=== PATIENT | female | born 1945 | race Hispanic/Latino ===

== ENCOUNTER → 2019-08-28 | Outpatient (CLI) | payer MEDICARE ==
--- NOTE | 2019-08-28 12:30 | Diagnostic Imaging Report ---
EXAMINATION: LOWER LEG LEFT INDICATION: Left lower leg pain COMPARISON: None FINDINGS: AP and lateral images of the left lower leg (tibia and fibula) were obtained. No acute fracture or dislocation. Alignment appears anatomic. The ankle mortise appears intact and symmetric. The soft tissues appear unremarkable. No knee joint effusion. IMPRESSION: No acute osseous injury. Signed by: Krish Cisneros MD on 08/28/2019 12:27 PM
--- NOTE | 2019-08-28 12:33 | Diagnostic Imaging Report ---
EXAM: Focused Soft Tissue Ultrasound Evaluation of the left neck INDICATION: ^[id number] ^1122 ^ACUTE SIALOADENITIS COMPARISON: None TECHNIQUE: Arroyo scale, color Doppler images of the left neck were obtained. FINDINGS: Focused sonographic evaluation of the area of clinical concern in the left neck soft tissues demonstrates no focal mass or fluid collection. IMPRESSION: Unremarkable sonographic evaluation of the left neck soft tissues. Signed by: Krish Cisneros MD on 08/28/2019 12:30 PM
== END ==
LOC: US 10:54
PROVIDERS: ATTEND Family Medicine
DX: K11.21 Acute sialoadenitis (principal); M79.605 Pain in left leg
CPT/HCPCS: 76536

== ENCOUNTER → 2020-03-18 | Day surgery (SDC) | payer MEDICARE, OTHER ==
[2020-03-14 08:48] LABS: BASOPHILS # (AUTO) 0.1 (0.0-0.1); EOSINOPHILS # (AUTO) 0.3 (0.0-0.4); EOSINOPHILS % 4.6 % (0.0-6.0); HEMATOCRIT 43.6 % (34.2-44.1); HEMOGLOBIN 13.5 g/dL (12.0-16.0); LYMPHOCYTES # (AUTO) 1.6 (1.0-3.2); LYMPHOCYTES % 23.1 % (18.0-39.1); MEAN CORPUSCULAR HEMOGLOBIN 26.4 pg (28-32); MEAN CORPUSCULAR VOLUME 85.3 fL (81-99); MONOCYTES # (AUTO) 0.8 (0.2-0.8); MONOCYTES % 11.6 % (4.4-11.3); NEUTROPHILS # (AUTO) 4.1 (2.1-6.9); NEUTROPHILS % 59.1 % (38.7-80.0); PLATELET COUNT 153 x10e3/uL (140-360); RED BLOOD COUNT 5.11 x10e6/uL (3.6-5.1); RED CELL DISTRIBUTION WIDTH 15.3 % (11.7-14.4)
[~2020-03-18] MED LIST: ADVAIR 100-501 EACH; FAMOTIDINE20 MG PO; GLYCOPYRROLATE INJ 0.2 MG/ML VIAL ONE; LIDOCAINE HCL 2% LOCAL INJ 5 ML SDV VIAL INJ ONE; LOSARTAN POTASS25 MG PO; PROMETHAZINE HC25 M1 PO; PROPOFOL IV EMULSION 10 MG/ML 20 ML VIAL ONE; VALACYCLOVIR500 MG PO
--- OUTSIDE RECORDS SUMMARY | 2020-03-18 12:10 | XMS REPORT ---
Author Author [facility] Organization [facility] Address [address] 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 Allergies, Adverse Reactions, Alerts This patient has no known allergies or adverse reactions. Medications This patient has no known medications. Procedures This patient has no known procedures. Results Test Description Test Time Test Comments Results Result Comments Source US SOFT TISSUE NECK/HEAD 2019-08-28 12:29:00 [place] [id number] Patient Name: GEETA DE LOS SANTOS MR #: [id number] : 1945 Age/Sex: 73/F Req #: [id number] Adm Physician: Ordered by: TOMASA HOLDEN MD Report #: [id number] Location: Room/Bed: Procedure: [id number] US/US SOFT TISSUE NECK/HEAD Exam Date: 08/28/19 Exam Time: 1121 REPORT STATUS: Signed EXAM: Focused Soft Tissue Ultrasound Evaluation of the left neck INDICATION: [id number] ACUTE SIALOADENITIS COMPARISON: None TECHNIQUE: Arroyo scale, color Doppler images of the left neck were obtained. FINDINGS: Focused sonographic evaluation of the area of clinical concern in the left neck soft tissues demonstrates no focal mass or fluid collection. IMPRESSION: Unremarkable sonographic evaluation of the left neck soft tissues. Signed by: Naga Cisneros MD on 08/28/2019 12:30 PM Dictated By: NAGA CISNEROS MD 1230 Transcribed By: DILSHAD on 08/28/19 1230 COPY TO: TOMASA HOLDEN MD LOWER LEG LEFT 2019-08-28 12:26:00 [place] [address] Patient Name: GEETA DE LOS SANTOS MR #: [id number] : 1945 Age/Sex: 73/F Req #: [id number] Adm Physician: Ordered by: TOMASA HOLDEN MD Report #: [id number] Location: Room/Bed: Procedure: [id number] DX/LOWER LEG LEFT Exam Date: 08/28/19 Exam Time: 1143 REPORT STATUS: Signed EXAMINATION: LOWER LEG LEFT INDICATION: Left lower leg pain COMPARISON: None FINDINGS: AP and lateral images of the left lower leg (tibia and fibula) were obtained. No acute fracture or dislocation. Alignment appears anatomic. The ankle mortise appears intact and symmetric. The soft tissues appear unremarkable. No knee joint effusion. IMPRESSION: No acute osseous injury. Signed by: Naga Cisneros MD on 08/28/2019 12:27 PM Dictated By: NAGA CISNEROS MD 1227 Transcribed By: DILSHAD on 08/28/19 1227 COPY TO: TOMASA HOLDEN MD
[2020-03-18 14:25] VITALS: BP 120/74
== END | disposition home or self-care (01) ==
LOC: OR 12:08
PROVIDERS: ATTEND Internal Medicine Gastroenterology
DX: K29.70 Gastritis, unspecified, without bleeding (principal); K31.7 Polyp of stomach and duodenum; K25.9 Gastric ulcer, unspecified as acute or chronic, without hemorrhage or perforation; K21.9 Gastro-esophageal reflux disease without esophagitis; K92.0 Hematemesis; Z71.3 Dietary counseling and surveillance; E66.3 Overweight; R00.1 Bradycardia, unspecified; I10 Essential (primary) hypertension; D64.9 Anemia, unspecified; B00.9 Herpesviral infection, unspecified; Z01.810 Encounter for preprocedural cardiovascular examination; Z01.812 Encounter for preprocedural laboratory examination; Z11.59 Encounter for screening for other viral diseases; Z68.29 Body mass index [BMI] 29.0-29.9, adult
CPT/HCPCS: 36415; 43239; 85025; 87635; 88305; 88312; 93005; J2001; J2704

== ENCOUNTER → 2020-08-05 | Day surgery (SDC) | payer MEDICARE, OTHER ==
[2020-08-01 15:02] LABS: BASOPHILS # (AUTO) 0.1 (0.0-0.1); BASOPHILS % 0.8 % (0.0-1.0); EOSINOPHILS # (AUTO) 0.3 (0.0-0.4); EOSINOPHILS % 4.6 % (0.0-6.0); HEMATOCRIT 42.9 % (34.2-44.1); HEMOGLOBIN 13.3 g/dL (12.0-16.0); LYMPHOCYTES # (AUTO) 1.5 (1.0-3.2); LYMPHOCYTES % 20.7 % (18.0-39.1); MEAN CORPUSCULAR HEMOGLOBIN 26.4 pg (28-32); MEAN CORPUSCULAR VOLUME 85.3 fL (81-99); MONOCYTES # (AUTO) 0.8 (0.2-0.8); MONOCYTES % 10.8 % (4.4-11.3); NEUTROPHILS # (AUTO) 4.6 (2.1-6.9); NEUTROPHILS % 62.7 % (38.7-80.0); PLATELET COUNT 154 x10e3/uL (140-360); RED BLOOD COUNT 5.03 x10e6/uL (3.6-5.1); RED CELL DISTRIBUTION WIDTH 14.5 % (11.7-14.4)
[~2020-08-05] MED LIST changes: -GLYCOPYRROLATE INJ 0.2 MG/ML VIAL ONE; +MIDAZOLAM HCL 2 MG/2 ML VIAL ONE
[2020-08-05 15:10] VITALS: BP 134/67
== END | disposition home or self-care (01) ==
LOC: OR 11:36
PROVIDERS: ATTEND Internal Medicine Gastroenterology
DX: Z12.11 Encounter for screening for malignant neoplasm of colon (principal); D12.2 Benign neoplasm of ascending colon; K29.70 Gastritis, unspecified, without bleeding; K21.9 Gastro-esophageal reflux disease without esophagitis; K57.30 Diverticulosis of large intestine without perforation or abscess without bleeding; Z71.3 Dietary counseling and surveillance; I10 Essential (primary) hypertension; F41.9 Anxiety disorder, unspecified; J30.9 Allergic rhinitis, unspecified; Z01.810 Encounter for preprocedural cardiovascular examination; Z01.812 Encounter for preprocedural laboratory examination; Z11.59 Encounter for screening for other viral diseases; Z68.30 Body mass index [BMI] 30.0-30.9, adult; Z87.891 Personal history of nicotine dependence
CPT/HCPCS: 36415; 45385; 85025; 88305; 93005; J2001; J2250; J2704; U0002